=== PATIENT | female | born 1995 | race Caucasian/White ===

== ENCOUNTER 2023-12-27 23:23 | Emergency (ER) | payer OTHER, SELFPAY ==
--- OUTSIDE RECORDS SUMMARY | 2023-12-27 23:27 | XMS REPORT | Continuity of Care Document ---
Author Name Unknown Address [address] [facility] [address] [place] [address] [facility] thconnect Address [address] [facility] [address] [place] [address] Care Team Providers Care Grain Receiver Name Role Phone PCP, PATIENT DOES NOT HAVE A Primary Care Physic reena Unavailable NAIMA OLIVER Attending Clinician Unavailable MARIAH YANG Attending Clinician Unavail able Damion Diaz Attending Clinician Unavailable Celia Mariah GAYTAN Attending Clinician + Doctor Unassigned, [place] Attending Clinician Lynn Kan RN Attending Clinician Unavailable Jay Jay Gar Attending Clinician Unava JAY JAY Castellano Attending Clinician Unavailab [facility] Maryvalep Nurse Attending Clinician Unava JANET Lemon Attending Clinician Unavailable Lucius Downey MD Attending Clinician [phone] LUCIUS DOWNEY Attending Clinician Unavailable Violeta Beach Admitting Clinician Unavailable Payers Payer Name Policy Type Policy Number Effective Date Expirati on Date Source [facility] [id number] 2021 00:00:00 Problems Condition Name Condition Details Condition Category Status Onset Date Resolution Date Last Treatment Date Treating Clinician Comments Source Breast pain in female Breast pain in female Disease Active 803 00:00: 00 [facility] Postural urinary incontinen ce Postural urinary incontinen ce Disease Active 09-26 00:00: 00 [facility] Dysuria Dysuria Disease Active 09-26 00:00: 00 [facility] Other general counseling and advice for contracept viviana management Other general counseling and advice for contracept viviana management Disease Active 10-11 00:00: 00 [facility] Allergies, Adverse Reactions, Alerts Allergy Name Allergy Type Status Severity Reaction(s) Onset Date Inactive Date Treating Clinician Comments Source latex DA Active AR ITCHING 11-12 00:00: 00 [facility] NO KNOWN ALLERGIE S Drug Class Active [facility] Social History Social Habit Start Date Stop Date Quantity Comments Source [facility] SARS-CoV-2 (event) 2021-11-04 00:00:00 2021-11-14 10:39:00 Not sure [facility] History of Social function 2021-09-26 00:00:00 2021-09-26 00:00:00 [facility] Tobacco use and exposure 2020-10-11 00:00:00 2020-10-11 00:00:00 Smokeless tobacco non-user [facility] Alcohol intake 2020-10-11 00:00:00 2020-10-11 00:00:00 Ex-drinker (finding) [facility] Sex Assigned At 1995 00:00:00 1995 00:00:00 [facility] Smoking Status Start Date Stop Date Source Never smoked tobacco [facility] Medications Ordered Medication Name Filled Medication Name Start Date Stop Date Current Medication? Ordering Clinician Indication Dosage Frequency Signature (SIG) Comments Components Source norethindro ne-ethinyl estradiol 1-20 mg-mcg per tablet 10-11 14:10: 54 Yes 1{tbl} Take 1 tablet by mouth daily. [facility] Immunizations Ordered Immunization Name Filled Immunization Name Date Status Comments Source HPV9 2021-06-03 00:00:00 Completed [facility] HPV9 2021-06-03 00:00:00 Completed [facility] HPV9 2020-11-15 00:00:00 Completed [facility] HPV9 2020-11-15 00:00:00 Completed [facility] HPV9 2020-10-11 00:00:00 Completed [facility] HPV9 2020-10-11 00:00:00 Completed [facility] HPV9 Unknown Completed [facility] HPV9 Unknown Completed [facility] HPV9 Unknown Completed [facility] HPV9 Unknown Completed [facility] HPV9 Unknown Completed [facility] HPV9 Unknown Completed [facility] HPV9 Unknown Completed [facility] HPV9 Unknown Completed [facility] HPV9 Unknown Completed [facility] HPV9 Unknown Completed [facility] HPV9 Unknown Completed [facility] HPV9 Unknown Completed [facility] Vital Signs Vital Name Observation Time Observation Value Comments S ource Systolic blood pressure 2021-11-14 16:15:00 125 mm[Hg] [facility] Diastolic blood pressure 2021-11-14 16:15:00 75 mm[Hg] [facility] Heart rate 2021-11-14 16:15:00 82 /min [facility] Body temperature 2021-11-14 16:15:00 36.44 Tram [facility] Respiratory rate 2021-11-14 16:15:00 18 /min [facility] Body height 2021-11-14 16:15:00 167.6 cm [facility] Body weight 2021-11-14 16:15:00 76.318 kg [facility] BMI 2021-11-14 16:15:00 27.16 kg/m2 [facility] Procedures Procedure Date / Time Performed Performing Clinician Source GC & CHLAMYDIA AMPLIFIED ASSAY 2021-11-14 16:52:00 Mariah Yang [facility] TRICHOMONAS AMPLIFIED ASSAY 2021-11-14 16:52:00 Mariah Yang [facility] Encounters Start Date/Time End Date/Time Encounter Type Admission Type Attending [facility] Care Facility Care Department Encounter ID Source 2023-10-30 08:15:00 2023-10-30 08:15:[address] [facility] [id number] [facility] 2023-10-24 08:30:00 2023-10-24 08:30:[address] [facility] [id number] [facility] 2023-10-21 08:30:00 2023-10-21 08:30:[address] [facility] [id number] [facility] 2023-09-26 08:15:00 2023-09-26 08:15:[address] [facility] [id number] [facility] 2023-09-25 14:30:00 2023-09-25 14:30:00 Outpatient R MARIAH YANG [facility] [id number] [facility] 2023-09-19 13:15:00 2023-09-19 13:15:00 Outpatient R AKINSIMARIAH MILLER [facility] [id number] [facility] 2022-11-12 13:20:00 2022-11-12 16:46:00 Emergency EM Damion Diaz [facility] [id number] [facility] 2022-04-01 13:45:00 2022-04-01 13:45:00 Outpatient R AKINSIBRIAN MILLERMARIAH [facility] [id number] [facility] 2022-01-14 09:30:00 2022-01-14 09:30:00 Outpatient R AKINSIBRIAN MILLERMARIAH [facility] [id number] [facility] 2022-01-14 09:30:00 2022-01-14 09:30:00 Outpatient R AKINSIBRIAN MILLERMARIAH [facility] [id number] [facility] 2021-11-14 11:00:00 2021-11-14 11:50:01 Outpatient R AKINSIBRIAN MILLERMARIAH [facility] [id number] [facility] 2021-11-14 11:00:00 2021-11-14 11:50:01 Office Visit Mariah Yang [facility] BI DATA MODELER [facility] & CHILD [facility] 1.84.114 350.1.13.10 4.2.7.2.686 [id number] [facility] 2021-11-14 00:00:00 2021-11-14 00:00:00 Orders Only Doctor Unassigned, [place] [facility] 1..114 350.1.13.10 4.2.7.2.686 [id number] [facility] 2021-11-12 00:00:00 2021-11-12 00:00:00 Patient Secure Msg Lynn Conde [facility] 1.114 350.1.13.10 4.2.7.2.686 [id number] [facility] 2021-11-05 00:00:00 2021-11-05 00:00:00 Patient Secure Msg Mariah Yang [facility] BI DATA MODELER [facility] & CHILD [facility] 1.84.114 350.1.13.10 4.2.7.2.686 [id number] [facility] 2021-10-12 10:30:00 2021-10-12 10:30:00 Outpatient R MARIAH YANG [facility] [id number] [facility] 2021-09-28 00:00:00 2021-09-28 00:00:00 Patient Secure Msg Jay Jay Gonzalez [facility] BI DATA MODELER [facility] & CHILD [facility] 1.84.114 350.1.13.10 4.2.7.2.686 [id number] [facility] 2021-09-26 14:30:00 2021-09-26 15:30:15 Office Visit Jay Jay Gonzalez [facility] BI DATA MODELER [facility] CHILD [facility] 1.840.114 350.1.13.10 4.2.7.2.686 [id number] [facility] 2021-09-26 14:30:00 2021-09-26 15:30:15 Outpatient R JAY JAY GONZALEZ [facility] [id number] [facility] 2021-09-26 14:30:00 2021-09-26 14:30:00 Out[facility] [id number] [facility] 2021-09-26 14:30:00 2021-09-26 14:30:00 Out[facility] [id number] [facility] 2021-09-26 00:00:00 2021-09-26 00:00:00 Patient Secure Msg Doctor Unassigned, [place] [facility] 1..114 350.1.13.10 4.2.7.2.686 [id number] [facility] 2021-07-20 00:00:00 2021-07-20 00:00:00 Orders Only Doctor Unassigned, [place] [facility] 1.840.114 350.1.13.10 4.2.7.2.686 [id number] [facility] 2021-06-03 10:45:00 2021-06-03 11:00:00 Nurse Visit Visit, Ang-Rmchp Nurse GonzalezJay Jay [facility] BI DATA MODELER [facility] CHILD [facility] 1.0.114 350.1.13.10 4.2.7.2.686 [id number] [facility] 2021-06-03 10:30:00 2021-06-03 10:30:00 Outpatient Angela JAY JAY GONZALEZ [facility] [id number] [facility] 2021-06-03 10:30:00 2021-06-03 10:30:00 Outpatient R GONZALEZJAY JAY [facility] [id number] [facility] 2021-05-31 09:15:00 2021-05-31 09:15:00 Outpatient R MARIAH YANG [facility] [id number] [facility] 2021-04-17 13:00:00 2021-04-17 13:00:[address] [facility] [id number] [facility] 2021-02-23 10:30:00 2021-02-23 10:30:00 Outpatient R JANET HUMPHERYS [facility] [id number] [facility] 2021-02-05 00:00:00 2021-02-05 00:00:00 Telephone Lucius Downey [facility] ..840.114 350.1.13.10 4.2.7.2.686 [id number] [facility] 2021-02-05 00:00:00 2021-02-05 00:00:00 Telephone Mariah Yang [facility] BI DATA MODELER [facility] & CHILD [facility] 1..840.114 350.1.13.10 4.2.7.2.686 [id number] [facility] 2021-02-02 11:30:00 2021-02-02 11:30:00 Outpatient R LUCIUS DOWNEY [facility] [id number] [facility] 2021-01-01 00:00:00 2021-01-01 00:00:00 Patient Secure Msg Mariah Yang [facility] BI DATA MODELER [facility] & CHILD [facility] ..840.114 350.1.13.10 4.2.7.2.686 [id number] [facility] 2020-11-15 13:05:27 2020-11-15 13:22:40 Nurse Visit Visit, Ang-Rmchp Nurse Mariah Yang [facility] BI DATA MODELER [facility] & CHILD [facility] 1.2.840.114 350.1.13.10 4.2.7.2.686 [id number] [facility] 2020-11-15 13:00:00 2020-11-15 13:00:00 [address] MARIAH YANG [facility] [id number] [facility] 2020-11-13 13:30:00 2020-11-13 13:30:[address] [facility] [id number] [facility] 2020-11-05 00:00:00 2020-11-05 00:00:00 Patient Secure Msg Doctor Unassigned, [place] [facility] 1.840.114 350.1.13.10 4.2.7.2.686 [id number] [facility] 2020-10-11 13:40:02 2020-10-11 15:04:28 Office Visit Mariah Yang [facility] BI DATA MODELER [facility] & CHILD [facility] 1.840.114 350.1.13.10 4.2.7.2.686 [id number] [facility] 2020-10-11 13:30:00 2020-10-11 13:30:00 Outpatient R MARIAH YANG [facility] [id number] [facility] 2020-10-11 00:00:00 2020-10-11 00:00:00 Orders Only Doctor Unassigned, [place] [facility] 1.840.114 350.1.13.10 4.2.7.2.686 [id number] [facility] Results Test Description Test Time Test Comments Results Result Co mments Source Indication for culture: Suprapubic PainSpecimen Description: CLEAN CATCH COMPREHENSIVE METABOLIC [id number] 14:22:00* Test Item Value Reference Range Interpretation Comme nts SODIUM (test code = NA) 139 mEq/L 134-147 N POTASSIUM (test code = K) 3.4 mEq/L 3.4-5.0 N CHLORIDE (test code = CL) 105 mEq/L 100-108 N CARBON DIOXIDE (test code = CO2) 26 mEq/l 21-33 N ANION GAP (test code = GAP) 12 0-20 N GLUCOSE (test code = GLU) 106 mg/dL 70-110 N BLOOD UREA NITROGEN (test code = BUN) 8 mg/dL 7-18 N GLOMERULAR FILTRATION RATE (test code = GFR) 123.0 110-120 H The Glomerular Filtration Rate is a calculated parameterbased on serum Creatinine, patient age and sex. GFR valuesless than 60 mL/min/1.73 square meters are indicative ofChronic Kidney Disease. Values less than 15 mL/min/1.73square meters indicate Kidney failure. The calculation forGFR is based on the CKD-EPI (2020) calculation. This formulais race indifferent and is the recommended formula for GFRby the National Kidney Foundation for Adults.The GFR will not calculate if the sex is unknown or if thepatient's age is <18 years. CREATININE (test code = CREAT) 0.7 mg/dL 0.6-1.3 N TOTAL PROTEIN (test code = PROT) 7.4 g/dL 6.4-8.2 N ALBUMIN (test code = ALB) 4.10 g/dL 3.4-5.0 N CALCIUM (test code = CA) 9.0 mg/dL 8.0-10.5 N BILIRUBIN TOTAL (test code = BILT) 0.60 mg/dL 0.0-1.0 N SGOT/AST (test code = AST) 23 IUnit/L 15-37 N SGPT/ALT (test code = ALT) 32 IUnit/L 30-65 N ALKALINE PHOSPHATASE TOTAL (test code = ALKP) 71 IUnit/L 20-125 N [id number] 14:22:00* Test Item Value Reference Range Interpretation Comme nts LIPASE (test code = LIP) 28 U/L 13-57 N CBC W/AUTO [id number] 14:00:00* Test Item Value Reference Range Interpretation Comme nts WHITE BLOOD CELL (test code = WBC) 10.0 x10 3/uL 4.5-11.0 N RED BLOOD CELL (test code = RBC) 4.33 x10 6/uL 3.54-5.02 N HEMOGLOBIN (test code = HGB) 12.6 g/dL 11.0-15.0 N HEMATOCRIT (test code = HCT) 37.2 % 33.0-45.0 N MEAN CELL VOLUME (test code = MCV) 85.9 fL 81.0-99.0 N MEAN CELL HGB (test code = MCH) 29.1 pg 27.0-33.0 N MEAN CELL HGB CONCETRATION (test code = MCHC) 33.9 g/dL 33.0-37.0 N RED CELL DISTRIBUTION WIDTH CV (test code = RDW) 12.9 % 11.5-14.5 N PLATELET COUNT (test code = PLT) 342 x10 3/uL 150-400 N NEUTROPHIL % (test code = NT%) 51.7 % 56.0-77.0 L LYMPHOCYTE % (test code = LY%) 41.3 % 14.0-32.0 H NEUTROPHIL # (test code = NT#) 5.17 x10 3/uL 2.0-7.6 N LYMPHOCYTE # (test code = LY#) 4.13 x10 3/uL 1.0-3.8 H MANUAL DIFF REQUIRED (test c ode = MDIFF) NO RED CELL DISTRIBUTION WIDTH SD (test code = RDW-SD) 40.5 fL 37.0-54.0 N MEAN PLATELET VOLUME (test c ode = MPV) 10.1 fL 7.0-9.0 H IMMATURE GRANULOCYTE % (test code = IG%) 0.2 % 0.0-2.0 N MONOCYTE % (test code = MO%) 5.9 % 4.8-9.0 N EOSINOPHIL % (test code = EO%) 0.5 % 0.3-3.7 N BASOPHIL % (test code = BA%) 0.4 % 0.0-2.0 N NUCLEATED RBC % (test code = NRBC%) 0.0 % 0-0 N IMMATURE GRANULOCYTE # (test code = IG#) 0.02 x10 3/uL 0.00-0.03 N MONOCYTE # (test code = MO#) 0.59 x10 3/uL 0.1-0.8 N EOSINOPHIL # (test code = EO#) 0.05 x10 3/uL 0.0-0.2 N BASOPHIL # (test code = BA#) 0.04 x10 3/uL 0.0-0.2 N NUCLEATED RBC # (test code = NRBC#) 0.00 x10 3/uL 0.0-0.1 N Notes Date/Time Note Provider Source 2022-11-12 13:34:00 [facility] EMERGENCY PROVIDER REPORT REPORT#:[id number] REPORT STATUS: Signed DATE:11/12/22 TIME: 1333 PATIENT: CESAR MILLER UNIT #: [id number] ROOM/BED: AGE: 27 SEX: F PCP PHYS: Violeta Beach MD SERVICE AUTHOR: Damion Diaz MD * ALL edits or amendments must be made on the electronic/computer document * HPI-General Illness Free Text HPI Notes Free Text HPI Notes Patient arrives today due to concern for 2 years of abdominal symptoms. States that she has had issues with diarrhea and constipation and states that she frequently feels like she is unable to get out of the bathroom. States that she is having significant stool output. States that she is having no nausea, states that she is having abdominal cramping. Patient reports that she has been evaluated by GI as most recently as 1 month ago, where she had an EGD and colonoscopy with ultimately nondiagnostic evaluation. General Initial Greet Date/Time 11/12/22 1323 Presentation Chief Complaint __ (diarrhea/constipation ) Past Medical History - Adult Stated Complaint "GI ISSUES" Allergies Coded Allergies: latex (Mild, ITCHING 11/12/22) Physical Exam Vital Signs Vital Signs First Documented: Result Date Time Pulse Ox 98 08/ 1325 B/P 116/74 / 1325 B/P Mean 88 08/ 1325 Temp 36.9 08/ 1325 Pulse 92 08/ 1325 Resp 18 11/12 1325 Last Documented: Result Date Time Pulse Ox 98 08/ 1325 B/P 116/74 11/12 1325 B/P Mean 88 08/ 1325 Temp 36.9 08/ 1325 Pulse 92 08 1325 Resp 18 11/12 1325 Review of Vital Signs Reviewed Free Text PE Notes Free Text PE Notes General/Const No acute distress, awake and alert Head Normocephalic Ears/Nose/Throat Airway patent MS Neck Good neck range of motion Resp/Chest No respiratory distress Cardiovascular Normal rate Abdomen/GI Nondistended MSK No evidence of extremity trauma Skin No notable rashes Neurologic Alert and oriented x3 Interpretation Diagnostics Lab Results Interpretation Results Laboratory Tests 11/12/22 1346: [Embedded Image Not Available] Laboratory Tests: 11/12 11/12 1350 1346 Chemistry Sodium (134 - 147 mEq/L) 139 Potassium (3.4 - 5.0 mEq/L) 3.4 Chloride (100 - 108 mEq/L) 105 Carbon Dioxide (21 - 33 mEq/l) 26 Anion Gap (0 - 20) 12 BUN (7 - 18 mg/dL) 8 Creatinine (0.6 - 1.3 mg/dL) 0.7 Glomerular Filtr Rate (110 - 120) 123.0 H Glucose (70 - 110 mg/dL) 106 Calcium (8.0 - 10.5 mg/dL) 9.0 Total Bilirubin (0.0 - 1.0 mg/dL) 0.60 AST (15 - 37 IUnit/L) 23 ALT (30 - 65 IUnit/L) 32 Total Alk Phosphatase (20 - 125 IUnit/L) 71 Total Protein (6.4 - 8.2 g/dL) 7.4 Albumin (3.4 - 5.0 g/dL) 4.10 Lipase (13 - 57 U/L) 28 Hematology WBC (4.5 - 11.0 x10 3/uL) 10.0 RBC (3.54 - 5.02 x10 6/uL) 4.33 Hgb (11.0 - 15.0 g/dL) 12.6 Hct (33.0 - 45.0 %) 37.2 MCV (81.0 - 99.0 fL) 85.9 MCH (27.0 - 33.0 pg) 29.1 MCHC (33.0 - 37.0 g/dL) 33.9 RDW (11.5 - 14.5 %) 12.9 Plt Count (150 - 400 x10 3/uL) 342 MPV (7.0 - 9.0 fL) 10.1 H Neut % (Auto) (56.0 - 77.0 %) 51.7 L Lymph % (Auto) (14.0 - 32.0 %) 41.3 H [place] % (Auto) (4.8 - 9.0 %) 5.9 Eos % (Auto) (0.3 - 3.7 %) 0.5 Baso % (Auto) (0.0 - 2.0 %) 0.4 Neut # (Auto) (2.0 - 7.6 x10 3/uL) 5.17 Lymph # (Auto) (1.0 - 3.8 x10 3/uL) 4.13 H [place] # (Auto) (0.1 - 0.8 x10 3/uL) 0.59 Eos # (Auto) (0.0 - 0.2 x10 3/uL) 0.05 Baso # (Auto) (0.0 - 0.2 x10 3/uL) 0.04 Abs Immat Gran (auto) (0.00 - 0.03 x10 3/uL) 0.02 Add Manual Diff NO Immature Gran % (0.0 - 2.0 %) 0.2 Nucleated RBC % (0 - 0 %) 0.0 Nucleated RBCs # (Man) (0.0 - 0.1 x10 3/uL) 0.00 Urines Urine Color (YEL/STRAW) DARK YELLOW Urine Appearance (CLEAR) SL CLOUDY Urine pH (5.0 - 7.0) 5.0 Ur Specific [place] (1.005 - 1.030) 1.027 Urine Protein (NEGATIVE) 2+ H Urine Glucose (UA) (NEGATIVE) NEGATIVE Urine Ketones (NEGATIVE) 1+ H Urine Blood (NEGATIVE) NEGATIVE Urine Nitrite (NEGATIVE) NEGATIVE Urine Bilirubin (NEGATIVE) NEGATIVE Urine Urobilinogen (0.2 - 1.0 mg/dL) 2.0 H Ur Leukocyte Esterase (NEGATIVE) NEGATIVE Urine RBC (0 - 3 RBC/HPF) 0-3 Urine WBC (0 - 3 WBC/HPF) 0-3 Ur Squamous Epith Cells (NONE SEEN /HPF) 0-5 Urine Bacteria (NONE SEEN /HPF) TRACE Urine Mucus (NONE SEEN /LPF) 4+ H Re-Evaluation MDM Free Text MDM Notes Free Text MDM Notes Patient presents today due to concern for 2 years of diarrhea and constipation. Examination remarkable well-appearing nontoxic dividual no acute distress. Will obtain basic lab work to evaluate for dehydration, renal dysfunction, electrolyte disturbances, liver abnormality. We will give the patient crystalloid as well. Patient's lab work is remarkable for noninfectious appearing urine. CBC that is reassuring, metabolic profile shows appropriate electrolytes and no evidence of renal dysfunction. On reassessment patient is well-appearing and in no acute distress. No emergent process identified on her work-up, story is also not emergent. Will discharge home have follow-up with her primary care doctor and her mechanical engineer. ED Course Medication(s) Ordered Medication(s) Ordered: Electrolytic, Caloric, And Farhana Sig/Tu Start time Last Medication Dose Route Stop Time Status Admin Sodium Chloride 1,000 ML X1ED STA 11/12 1334 DC 11/12 IV 11/12 1335 1350 Patient Discharge Departure Vital Signs/Condition Vital Signs First Documented: Result Date Time Pulse Ox 98 11/12 1325 B/P 116/74 / 1325 B/P Mean 88 11/12 1325 Temp 36.9 / 1325 Pulse 92 11/12 1325 Resp 18 11/12 1325 Last Documented: Result Date Time Pulse Ox 98 11/12 1325 B/P 116/74 / 1325 B/P Mean 88 / 1325 Temp 36.9 08/ 1325 Pulse 92 11/12 1325 Resp 18 11/12 1325 All vital signs available at the time of this entry have been reviewed. Clinical Impression Clinical Impression Primary Impression: Chronic diarrhea Disposition Decision Discharge )( Discharged to Home Yes )( Time 1626 )( Date 11/12/22 Discharge/Care Plan Patient Instructions ED Diarrhea, Unknown Cause at 1651 RPT #:[id number] END OF REPORT [facility]
[2023-12-28 00:53] LABS: Absolute Monocytes 0.5 K/uL (0.1-1.3); Absolute Neutrophil 6.6 K/uL (1.8-8.0)
[2023-12-28 00:57] LABS: Absolute Basophils 0.1 K/uL (0-0.5); Basophils % 0.6 % (0-1.3); Eosinophils % 0.2 % (0-4.4); Hematocrit 36.6 % (36.0-45.0); Hemoglobin 12.1 g/dL (12.0-15.0); MCH 29.3 pg (27.0-35.0); MCV 88.7 fL (80-100); Monocytes % 4.5 % (3.3-12.3); Neutrophils % 58.7 % (41.7-73.7); Platelets 160 thou/uL (152-406); RBC Red Blood Cell Count 4.13 M/uL (3.86-4.86); Red Cell Distribution Width 14.5 % (12.1-15.2)
--- NOTE | 2023-12-28 01:51 | EDPHYS ---
Physician Documentation [facility] Name: Sebas Duarte Age: 28 yrs Sex: Female : 1995 Arrival Date: 12/27/2023 Time: 23:23 Bed 20 Private MD: ED Physician Ari Larios HPI: 12/26 23:56 This 28 yrs old Female presents to ER via Unassigned with complaints of pt states she aj3 is having gi issues. 23:56 She reports that she has been having ongoing abdominal pain and black tarry stools over aj3 the last year. She has seen specialist and had EGD and colonoscopy done and told that she has gastritis. She says that previous medications that she has been on did not help and she is unsure what to do next. No reports of any fever.. 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 - Infectious Disease History:: Denies. - Social history:: Smoking status: Patient denies any tobacco usage or history of. ROS: 23:56 Constitutional: Negative for fever, chills, and weight loss, aj3 23:56 Abdomen/GI: Positive for abdominal pain, black/tarry stool, 23:56 All other systems are negative, Exam: 23:56 Constitutional: This is a well developed, well nourished patient who is awake, alert, aj3 and in no acute distress. 23:56 Neuro: Awake and alert, GCS 15, oriented to person, place, time, and situation. Motor strength 5/5 in all extremities. Sensory grossly intact. Normal gait. 23:56 Abdomen/GI: Bowel sounds: normal, Palpation: mild abdominal tenderness, in all quadrants, No rebound or guarding, 23:56 Psych: Appears anxious. Vital Signs: 23:30 BP 139 / 101; Pulse 119; Resp 20; Temp 98.9; Pulse Ox 100% ; Weight 66.68 kg; Height 5 vc1 ft. 6 in. ; 12/27 00:30 BP 113 / 86; Pulse 96; Resp 18; Pulse Ox 100% ; cp4 01:30 BP 114 / 71; Pulse 101; Resp 18; Pulse Ox 100% ; cp4 12/26 23:30 Body Mass Index 23.73 (66.68 kg, 167.64 cm) vc1 MDM: 12/26 23:32 Patient medically screened. [facility] 23:56 Differential diagnosis: Gastritis, GERD, peptic ulcer. ED course: Patient offered aj3 medication but she declined.. 12/27 00:43 Transition of care: After a detail discussion of the patient's case, care is aj3 transferred to Ari Larios MD. 02:18 Differential Diagnosis Constipation, IBS, IBD. Data reviewed: vital signs, nurses rt notes, lab test result(s), radiologic studies. Independent interpretation of the following test(s) in the Emergency Department CT Scan: My interpretation is No bowel obstruction seen on my interpretation of CT scan images. Counseling: I had a detailed discussion with the patient and/or guardian regarding the historical points, exam findings, and any diagnostic results supporting the discharge/admit diagnosis, lab results, radiology results. 12/26 23:43 Order name: CBC with Diff 12/26 23:43 Order name: Test, Serum; Complete Time: 01:00 [facility] 12/27 00:18 Order name: CT Abd/Pelvis - Without Contrast [facility] 12/26 23:43 Order name: IV Saline Lock; Complete Time: 00:50 [facility] 12/26 23:43 Order name: Labs collected and sent; Complete Time: 00:50 [facility] Administered Medications: No medications were administered Disposition: 02:17 Co-signature as Attending Physician, Ari Larios MD I reviewed the patient's care rt provided by Advanced Practice Provider \T\ agree w/ the diagnosis \T\ care plan. I personally saw the pt \T\ performed a substantive portion of the visit, incldng all aspects of the (History/Exam/Medical Decision Making). I discussed at length the patient's CT results, lack of acute findings. Patient is in no acute distress. Patient is stable for outpatient care, instructed patient to follow-up with primary care for further management. Disposition Summary: 12/28/23 01:50 Discharge Ordered Notes: Location: Home rt Problem: an ongoing problem rt Symptoms: have improved rt Condition: Stable rt Diagnosis - Abdominal pain, unspecified rt Followup: rt - With: Private Physician - When: 2 - 3 days - Reason: Discharge Instructions: - Discharge Summary Sheet rt - Abdominal Pain, Adult rt Forms: - Medication Reconciliation Form rt - Antibiotic Education rt - Prescription Opioid Use rt - Patient Portal Instructions rt - Leadership Thank You Letter rt Signatures: Dispatcher [employer] Brittney Kirkpatrick RN RN vc1 Gayla Luis NP MD OPHTHALMOLOGIST aj3 Ari Larios MD MD rt Rosa Hernandez cp4
--- NOTE | 2023-12-28 01:51 | ER ---
Nurse's Notes [facility] Name: Sebas Duarte Age: 28 yrs Sex: Female : 1995 Arrival Date: 12/27/2023 Time: 23:23 Bed 20 Private MD: Diagnosis: Abdominal pain, unspecified Presentation: 12/26 23:30 Chief complaint: Patient states: I've had GI issues for the past year, I also have vc1 black tarry stools and my stomach hurts all the time. 23:30 Coronavirus screen: Client denies travel out of the [place] in the last 14 days. At this vc1 time, the client does not indicate any symptoms associated with coronavirus-19. Ebola Screen: Patient negative for fever greater than or equal to 101.5 degrees Fahrenheit, and additional compatible Ebola Virus Disease symptoms Patient denies exposure to infectious person. Patient denies travel to an Ebola-affected area in the 21 days before illness onset. No symptoms or risks identified at this time. Initial Sepsis Screen: Does the patient meet any 2 criteria? HR > 90 bpm. No. Patient's initial sepsis screen is negative. Does the patient have a suspected source of infection? No. Patient's initial sepsis screen is negative. Risk Assessment: Do you want to hurt yourself or someone else? Patient reports no desire to harm self or others. Onset of symptoms is unknown. 23:30 Method Of Arrival: Ambulatory vc1 23:30 Acuity: LICO 3 vc1 HOSPITAL MEDICINE DIRECTOR: 12/27 00:05 LMP 12/25/2023, unknown vc1 Historical: - Allergies: 12/26 23:30 Latex, Natural Rubber; vc1 - Home Meds: 23:30 None [Active]; vc1 - PMHx: 23:30 Anxiety; Depressive disorder; Personality discorder; vc1 - PSHx: 23:30 None; vc1 - Immunization history:: Client reports receiving the 2nd dose of the Covid vaccine. - Infectious Disease History:: Denies. - Social history:: Smoking status: Patient denies any tobacco usage or history of. Screenin:55 [facility] ED Fall Risk Assessment (Adult) History of falling in the last 3 months, cp4 including since admission No falls in past 3 months (0 pts) Confusion or Disorientation No (0 pts) Intoxicated or Sedated No (0 pts) Impaired Gait No (0 pts) Mobility Assist Device Used No (0 pt) Altered Elimination No (0 pt) Score/Fall Risk Level 0 - 2 = Low Risk Oriented to surroundings, Maintained a safe environment, Assessed \T\ reinforced patient's understanding of fall precautions, Hourly rounding (assess needs \T\ fall precautionary measures) done. Abuse screen: Denies threats or abuse. Nutritional screening: No deficits noted. Tuberculosis screening: No symptoms or risk factors identified. Assessment: 23:55 General: Appears in no apparent distress. comfortable, Behavior is calm, cooperative, cp4 appropriate for age. Pain: Denies pain. Neuro: Level of Consciousness is awake, alert, obeys commands, Oriented to person, place, time, situation. Cardiovascular: Patient's skin is warm and dry. Respiratory: Airway is patent Respiratory effort is even, unlabored. GI: Abdomen is flat, non-distended, Bowel sounds present X 4 quads. Abd is soft and non tender X 4 quads. Reports diarrhea, dark stools. : No signs and/or symptoms were reported regarding the genitourinary system. EENT: No signs and/or symptoms were reported regarding the EENT system. Derm: No signs and/or symptoms reported regarding the dermatologic system. Musculoskeletal: No signs and/or symptoms reported regarding the musculoskeletal system. Vital Signs: 23:30 BP 139 / 101; Pulse 119; Resp 20; Temp 98.9; Pulse Ox 100% ; Weight 66.68 kg; Height 5 vc1 ft. 6 in. ; 12/27 00:30 BP 113 / 86; Pulse 96; Resp 18; Pulse Ox 100% ; cp4 01:30 BP 114 / 71; Pulse 101; Resp 18; Pulse Ox 100% ; cp4 12/26 23:30 Body Mass Index 23.73 (66.68 kg, 167.64 cm) vc1 ED Course: 12/26 23:28 Patient arrived in ED. gm2 23:30 Rosa Hernandez is Primary Nurse. cp4 23:30 Arm band placed on right wrist. vc1 23:32 Gayla Luis NP is PHCP. aj3 23:32 Ari Larios MD is Attending Physician. aj3 23:55 Bed in low position. Call light in reach. Side rails up X 1. cp4 23:55 No provider procedures requiring assistance completed. Inserted Missed attempt(s): 22 cp4 gauge in right antecubital area. 12/27 00:04 Triage completed. vc1 00:32 Inserted saline lock: 22 gauge in right antecubital area, using aseptic technique. oe Blood collected. Flushed with 10 mL NS. 01:19 CT Abd/Pelvis - Without Contrast In Process Unspecified. EDMS 01:59 Provided Education on: abdominal pain. cp4 01:59 intact, bleeding controlled, No redness/swelling at site. Pressure dressing applied. cp4 Administered Medications: No medications were administered Medication: 12/26 23:55 VIS not applicable for this client. cp4 Outcome: 12/27 01:50 Discharge ordered by . rt 01:59 Discharged to home ambulatory, cp4 01:59 Condition: stable 01:59 Discharge instructions given to patient, Instructed on discharge instructions, follow up and referral plans. Demonstrated understanding of instructions, follow-up care, 02:00 Patient left the ED. cp4 Signatures: Dispatcher [employer] EDPA Mauricio Sanchez oe Brittney Jaffe RN RN vc1 Gayla Luis, PRIMARY SCHOOL TEACHER LIBRARIAN PRIMARY SCHOOL TEACHER LIBRARIAN ingrid3 Ari Larios MD MD rt Potter, Christina cp4 Tana Leon gm2 Corrections: (The following items were deleted from the chart) 00:33 00:32 Inserted saline lock: 22 gauge in right antecubital area, using aseptic oe technique. Flushed with 10 mL NS oe
[2023-12-28 02:10] VITALS: TEMP 98.9; O2SAT 100
[2023-12-28 02:22] VITALS: BP 114/71
[2023-12-28 02:41] LABS: Blood Morphology Comment NOT SEEN (NOT SEEN); Platelet Estimate ADEQ; White Blood Cell Scan OK (OK)
--- NOTE | 2023-12-29 14:59 | RAD REPORT ---
EXAM DESCRIPTION: Abdomen Pelvis Wo Contrast CLINICAL HISTORY: melena;Abd pain COMPARISON: None Available. TECHNIQUE: CT of the abdomen and pelvis without IV contrast. Evaluation of the solid organs and vascu lature is suboptimal due to lack of IV contrast. This exam was performed according to our departmental dose-optimization progr am, which includes automated exposure control, adjustment of the mA and/or kV according to patient size and/or use of it erative reconstruction technique. FINDINGS: Lung Bases: The visualized lung bases are clear. Abdomen: Liver: The liver has normal contour and density. No obvious mass within the limitations of noncontras t technique. Gallbladder: No calcified gallstones. Spleen, Pancreas, and Adrenal Glands: The spleen, pancreas, and adrenal glands are unremarkable. Kidneys: The kidneys have normal size without suspicious mass within the limitations of noncontrast t echnique. No obstructing ureteral calculi. No hydronephrosis. Vasculature: The aorta and IVC have normal caliber and position. Stomach: The stomach and duodenum have normal course. Other: No free intraperitoneal air. No significant lymphadenopathy. Pelvis: Bladder: Urinary bladder is unremarkable. Bowel: No dilated loops of large or small bowel. Moderate stool in the colon, more pronounced proxima lly. Appendix: Normal appendix. Pelvis:No suspicious mass. Tampon is noted in the vagina. Trace free pelvic fluid. Bones: No destructive bone lesions identified. IMPRESSION: 1. No acute abnormality on noncontrast CT of the abdomen and pelvis. 2. Moderate stool in the colon. No bowel obstruction. 3. Trace free pelvic fluid, likely physiologic. Electronically signed by: Irma Grimm MD 12/28/2023 01:27 AM [facility] Transcribed Date/Time: 12/29/2023 2:59 PM
== END 2023-12-28 02:00 | disposition home or self-care (01) ==
LOC: ER 23:23
DX: R10.9 Unspecified abdominal pain (principal)
CPT/HCPCS: 36415; 74176; 84703; 85025; 99284